=== PATIENT | male | born 1940 ===

== ENCOUNTER 2019-05-27 12:40 | Outpatient (CLI) | payer OTHER | END 2019-05-27 12:50 | disposition home or self-care (01) | LOC: SONOGRAMA 12:40 → MAMO-SONO 05-28 13:15 | DX: S42.222A 2-part displaced fracture of surgical neck of left humerus, initial encounter for closed fracture (principal); M75.122 Complete rotator cuff tear or rupture of left shoulder, not specified as traumatic ==